=== PATIENT | female | born 1980 | race Two or more races ===

== ENCOUNTER 2018-10-28 22:49 | Emergency (ER) | payer OTHER ==
[~2018-10-28] VITALS: Ht 162.6 cm; Wt 77.1 kg
[2018-10-28 23:19] VITALS: BP 134/84
[2018-10-28] MEDS ORDERED: TDAP [DIPH/PERTUSSIS/TET] 0.5 ML VIAL IM ONE (23:58)
[2018-10-29] MEDS ORDERED: TDAP [DIPH/PERTUSSIS/TET] 0.5 ML VIAL IM ONE
== END 2018-10-29 01:17 | disposition home or self-care (01) ==
LOC: ER 22:54
DX: S60.450A Superficial foreign body of right index finger, initial encounter (principal); Z90.89 Acquired absence of other organs; W25.XXXA Contact with sharp glass, initial encounter; Y93.89 Activity, other specified; Y92.89 Other specified places as the place of occurrence of the external cause; Y99.8 Other external cause status
CPT/HCPCS: 73140; 90471; 90715; 99283; A4606; Z7610

== ENCOUNTER 2019-09-20 17:15 | Emergency (ER) | payer MEDICAID, OTHER ==
[~2019-09-20] VITALS: Ht 162.6 cm; Wt 81.6 kg
--- NOTE | 2019-09-20 17:20 | NUR ---
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 Patient a/ox4, breathing even and unlabored, no sob noted, no distress noted, patient still noted to have vaginal bleeding with blod clots. Attached to the shoe parts molder.
[2019-09-20] MEDS ORDERED: IV NS 0.9% 1,000 ML BAG IV ONE (17:30)
--- NOTE | 2019-09-20 17:40 | NUR ---
Dr. Mcclellan preferred a straight catheter to separate urine from vaginal bleeding. Informed the patient but patient refused the straight catheter due to previous uti from a catheter. Explained risks and benefits, still refused. Dr. Mcclellan aware, ok to not collect urine.
[2019-09-20 18:01] LABS: BASOPHILS % (AUTO) 0.2 % (0.0-2.0); EOSINOPHILS % (AUTO) 0.6 % (0.0-6.0); HEMATOCRIT 33 % (33-45); HEMOGLOBIN 11.3 g/dL (11.5-14.8); LYMPHOCYTES # (AUTO) 1.5 /CMM (0.8-4.8); LYMPHOCYTES % (AUTO) 29.2 % (20.0-44.0); MEAN CORPUSCULAR HGB CONC 34 g/dl (31.0-36.0); MEAN CORPUSCULAR VOLUME 90 fL (82-100); MONOCYTES # (AUTO) 0.5 /CMM (0.1-1.30); MONOCYTES % (AUTO) 9.4 % (2.0-12.0); NEUTROPHILS # (AUTO) 3.2 /CMM (1.8-8.9); NEUTROPHILS % (AUTO) 60.6 % (43.0-81.0); PLATELET COUNT (AUTO) 175 /CMM (150-450); RED BLOOD CELL COUNT(AUTO) 3.71 MIL/uL (4.0-5.2); WHITE BLOOD COUNT (AUTO) 5.2 K/uL (4.3-11.0)
--- NOTE | 2019-09-20 19:00 | NUR ---
IV removed. Catheter intact and site benign. Pressure and 4x4 applied to site. No bleeding noted.Patient discharged to home in stable condition. Written and verbal after care instructions given. Patient verbalizes understanding of instruction.
[2019-09-20 19:01] VITALS: BP 102/70
== END 2019-09-20 19:01 | disposition home or self-care (01) ==
LOC: ER 17:17
DX: O20.0 Threatened abortion (principal); Z90.89 Acquired absence of other organs; Z3A.15 15 weeks gestation of pregnancy
CPT/HCPCS: 36415; 76856; 84702; 85025; 86850; 99284; J7030

== ENCOUNTER 2021-08-21 14:18 | Emergency (ER) | payer OTHER ==
[~2021-08-21] VITALS: Ht 162.6 cm; Wt 78.5 kg
--- NOTE | 2021-08-21 15:45 | NUR ---
COVID SWAB DONE AND SENT TO THE LAB
--- NOTE | 2021-08-21 16:00 | NUR ---
The patient bibs for c/o sore throat x 3 days. Rates pain 3/10. In room air and denies SOB. Respiration regular and unlabored. Will continue to monitor the patient.
[2021-08-21 16:06] VITALS: BP 123/62
--- NOTE | 2021-08-21 16:06 | NUR ---
Patient discharged to home in stable condition. Written and verbal after care instructions given. Patient verbalizes understanding of instruction.
--- NOTE | 2021-08-21 16:07 | NUR ---
UNABLE TO DEPART THE PATIENT FROM [facility]
--- NOTE | 2021-08-25 13:14 | NUR ---
PATIENT CALLED TO FIND OUT RESULT FOR COVID, RELAYED NEGATIVE
== END 2021-08-21 18:00 | disposition home or self-care (01) ==
LOC: ER 17:17
DX: J02.9 Acute pharyngitis, unspecified (principal); Z20.822 Contact with and (suspected) exposure to COVID-19
CPT/HCPCS: 87426; 99283; C9803

== ENCOUNTER 2022-08-18 22:28 | Inpatient (IN) | payer OTHER ==
[~2022-08-18] VITALS: Ht 162.6 cm; Wt 73.1 kg
[~2022-08-18 22:28] MED LIST changes: -CEFTRIAXONE 1GM BAG (ER ONLY) 1 GM/50 ML PIGGYBACK IV ONE; -CEFTRIAXONE 1GM BAG (ER ONLY) 50 ML IV ONE; -KETOROLAC TROMETHAMINE 15 MG/ML VIAL ONE; -KETOROLAC TROMETHAMINE INJ 30 MG/ML VIAL IV ONE; -NITR100C6 PO
--- NOTE | 2022-08-18 22:38 | NUR ---
KARMEN 839 FROM HOME FOR C/O FEVER. WAS SEEN AT [facility] ER EARLIER FOR RENAL STONE AND UTI A/OX4. TOLERATING R/A WELL WITH NO RESP DISTRESS. AMBULATORY WITH STEADY GAIT. SAFETY MEASURES IN PLACE. SITTER AT PT'S BEDSIDE
--- NOTE | 2022-08-18 23:20 | NUR ---
SOFTWARE INTEGRATION DEVELOPER AT PT'S BEDSIDE
[2022-08-18] MEDS ORDERED: IV NS 0.9% 1,000 ML BAG IV ONE (23:30)
[2022-08-18] MEDS ORDERED: KETOROLAC TROMETHAMINE INJ 30 MG/ML VIAL IV ONE (23:30)
--- NOTE | 2022-08-18 23:41 | NUR ---
URINE COLLECTED AND SENT TO LAB
--- NOTE | 2022-08-18 23:41 | NUR ---
20g IV ESTABLISHED AT [facility] BLOOD DRAWN AND SENT TO LAB
--- NOTE | 2022-08-18 23:42 | NUR ---
JENNIFER SENT TO LAB
[2022-08-19 00:21] LABS: BASOPHILS % (AUTO) 0.3 % (0.0-2.0); EOSINOPHILS % (AUTO) 0.1 % (0.0-6.0); HEMATOCRIT 31 % (33-45); HEMOGLOBIN 10.4 g/dL (11.5-14.8); LYMPHOCYTES % (AUTO) 13.8 % (20.0-44.0); MEAN CORPUSCULAR HGB CONC 33 g/dl (31.0-36.0); MEAN CORPUSCULAR VOLUME 83 fL (82-100); MONOCYTES % (AUTO) 14.5 % (2.0-12.0); NEUTROPHILS % (AUTO) 71.3 % (43.0-81.0); PLATELET COUNT (AUTO) 183 K/uL (150-450)
[2022-08-19 00:46] LABS: CALCIUM, SERUM 9.2 mg/dL (8.5-10.1); CARBON DIOXIDE 24 mmol/L (21-32); CHLORIDE 100 mmol/L (98-107); CREATININE 0.8 mg/dL (0.6-1.3); GLUCOSE 120 mg/dL (74-106); POTASSIUM 3.6 mmol/L (3.5-5.1); SODIUM SERUM 135 mmol/L (136-145); UREA NITROGEN, BLOOD 10 mg/dL (7-18)
[2022-08-19 00:50] LABS: ALANINE AMINOTRANSFERASE 30 U/L (12-78); ALBUMIN 3.7 g/dL (3.4-5.0); ALKALINE PHOSPHATASE 59 U/L (46-116); ASPARTATE AMINOTRANSFERASE 16 U/L (15-37); BILIRUBIN,DIRECT 0.2 mg/dL (0.0-0.2); BILIRUBIN,TOTAL 0.9 mg/dL (0.2-1.0); TOTAL PROTEIN, SERUM 8.2 g/dL (6.4-8.2)
--- NOTE | 2022-08-19 02:17 | NUR ---
COLOR MIXER AT PT'S BEDSIDE
[2022-08-19] MEDS ORDERED: MAGNESIUM HYDROXIDE 30 ML UDC PO PRN (03:00)
[2022-08-19] MEDS ORDERED: ONDANSETRON HCL/PF 4 MG/2 ML VIAL IVP PRN (03:00)
[2022-08-19] MEDS ORDERED: MAG HYDROX/AL HYDROX/SIMETH 30 ML UDC PO PRN (03:00)
[2022-08-19] MEDS ORDERED: MORPHINE SULFATE INJ 2 MG/ML DISP.SYRIN IV PRN (03:00)
[2022-08-19] MEDS ORDERED: HYDROCODONE/APAP 5/325MG TABLET PO PRN (03:00)
[2022-08-19] MEDS ORDERED: Z GUARD REMEDY 4 OZ OINT TP PRN (03:00)
[2022-08-19] MEDS ORDERED: TEMAZEPAM 15 MG CAPSULE PO PRN (03:00)
--- NOTE | 2022-08-19 03:32 | NUR ---
REPORT GIVEN TO FABI
--- NOTE | 2022-08-19 03:45 | NUR ---
PT TRANSPORTED TO 311 VIA WHEELCHAIR IN STABLE CONDITION
--- NOTE | 2022-08-19 03:46 | NUR ---
MS DICE PERSON NOTE PT TRANSPORTED VIA WHEELCHAIR TO UNIT AT THIS TIME. PT ADMITTED TO MS UNIT FROM ER UNDER CORROSION CONTROL FITTER VIRGIL FOR ADMITTING DX OF UTI. A/O X4 AND ABLE TO MAKE NEEDS KNOWN. PT IS AMBULATORY WITH STEADY GAIT. STABLE ON ROOM AIR, TOLERATING WELL. NO SOB OR S/S OF RESPIRATORY DISTRESS. BREATHING EVEN AND UNLABORED. DENIES PAIN OR DISCOMFORT AT THIS TIME. SKIN IS INTACT. IV ACCESS RAC 20G, INTACT AND PATENT. PT ORIENTED TO UNIT, ROOM, AND UNIT. PT BELONGINGS ACCOUNTED FOR AND BELONGINGS LIST SIGNED. SAFETY PRECAUTIONS IN PLACE. BED IN LOWEST LOCKED POSITION, HOB ELEVATED, SIDE RAILS UP X2, AND CALL LIGHT AND TABLE WITHIN REACH. ALL NEEDS MET AT THIS TIME.
[2022-08-19] MEDS ORDERED: CEFTRIAXONE 1 G VIAL ONE (03:53)
[2022-08-19] MEDS: CEFTRIAXONE 1 G in IV D5W 50 ML IV SCH (04:06)
[2022-08-19] MEDS: IV NS 0.9% 1,000 ML IV PRN ×2 (04:06→17:59)
[2022-08-19 04:37] VITALS: BP 93/54
--- NOTE | 2022-08-19 06:51 | NUR ---
MS RN CLOSING NOTE PT AWAKE IN BED. A/O X4 AND ABLE TO MAKE NEEDS KNOWN. STABLE ON ROOM AIR, TOLERATING WELL. NO SOB OR S/S OF RESPIRATORY DISTRESS. BREATHING EVEN AND UNLABORED. DENIES PAIN OR DISCOMFORT AT THIS TIME. IV ACCESS RAC 20G, INTACT AND PATENT, RUNNING NS @ 100 ML/HR. ALL DUE MEDS GIVEN ORDERED. SAFETY PRECAUTIONS IN PLACE AT ALL TIMES. BED IN LOWEST LOCKED POSITION, HOB ELEVATED, SIDE RAILS UP X2, AND CALL LIGHT AND TABLE WITHIN REACH. ALL NEEDS MET AT THIS TIME AND WILL ENDORSE TO ONCOMING NURSE FOR DIAMANTE.
--- NOTE | 2022-08-19 07:00 | NUR ---
MS RN OPENING NOTES: RECEIVED PT IN BED, AWAKE ALERT AND ORIENTED X 4. ABLE TO VERBALIZED NEEDS. DENIES PAIN AT THIS TIME. NO SOB OR CARDIAC DISTRESS NOTED. IV ACCESS ON RAC G 20 PATENT, INTACT NS 1L @100ML/HR AND INFUSING WELL. MAINTAINED SAFETY MEASURES: BED LOCKED AND IN LOWEST POSITION, SIDE RAILS UP X 2 CALL LIGHT IN EASY REACH FOR HELP. WILL MONITOR ACCORDINGLY.
[2022-08-19 08:00] VITALS: BP 112/76
[2022-08-19] MEDS: PANTOPRAZOLE 40 MG TABLET.DR PO SCH (08:06)
[2022-08-19] MEDS: ACETAMINOPHEN 325 MG TABLET PO PRN ×2 (09:45→17:59)
[2022-08-19 16:00] VITALS: BP 100/60
--- NOTE | 2022-08-19 18:49 | NUR ---
RN MS CLOSING NOTES: PATIENT IN BED, AWAKE. ALERT AND ORIENTED X 4 AND ABLE TO VERBALIZED NEEDS. NO SOB OR CARDIAC DISTRESS NOTED. ON PAIN MANAGEMENT ORDERED. IV ACCESS ON RAC GAUGE 20, PATENT, INTACT AND INFUSING NS 1L @100ML/HR. SAFETY MEASURES MAINTAINED: BED LOCKED AND IN LOWEST POSITION, SIDE RAILS UP X 2. CALL LIGHT AND BED SIDE TABLE IN EASY REACH. ENDORSED TO NOC SHIFT FOR DIAMANTE.
[2022-08-19 18:57] VITALS: BP 115/64
--- NOTE | 2022-08-19 19:00 | NUR ---
MS RN NOTES PATIENT STATED THAT SHE FEELS HOT. VITAL SIGNS TAKEN DOCUMENTED. REMOVE 4 BLANKETS FROM HER, AND PROVIDED 2 ICE PACKS FOR HER. WILL ENDORSE THE BELL CAPTAIN RN TO CONTINUE MONITORING PATIENT'S CONDITION.
--- NOTE | 2022-08-19 19:30 | NUR ---
MS RN OPENING NOTE PT AWAKE IN BED. A/O X4 AND ABLE TO MAKE NEEDS KNOWN. STABLE ON ROOM AIR, TOLERATING WELL. NO SOB OR S/S OF RESPIRATORY DISTRESS. BREATHING EVEN AND UNLABORED. DENIES PAIN OR DISCOMFORT AT THIS TIME. IV ACCESS RAC 20G, INTACT AND PATENT, RUNNING NS @ 100 ML/HR. SAFETY PRECAUTIONS IN PLACE. BED IN LOWEST LOCKED POSITION, HOB ELEVATED, SIDE RAILS UP X2, AND CALL LIGHT AND TABLE WITHIN REACH. ALL NEEDS MET AT THIS TIME.
[2022-08-19 20:35] VITALS: BP 97/71
[2022-08-20] MEDS: CEFTRIAXONE 1 G in IV D5W 50 ML IV SCH (04:23)
[2022-08-20] MEDS: ACETAMINOPHEN 325 MG TABLET PO PRN ×2 (04:42→14:02)
--- NOTE | 2022-08-20 04:42 | NUR ---
RN NOTE PT COMPLAINED OF HEADACHE 12/31. ADMINISTERED TYLENOL 650 MG FOR MILD PAIN ORDERED. MADE COMFORTABLE IN BED. ALL NEEDS MET AT THIS TIME.
[2022-08-20 06:59] LABS: BASOPHILS % (AUTO) 0.3 % (0.0-2.0); EOSINOPHILS % (AUTO) 0.9 % (0.0-6.0); HEMATOCRIT 31 % (33-45); HEMOGLOBIN 10.1 g/dL (11.5-14.8); LYMPHOCYTES # (AUTO) 1.8 K/uL (0.8-4.8); LYMPHOCYTES % (AUTO) 27.8 % (20.0-44.0); MEAN CORPUSCULAR HGB CONC 33 g/dl (31.0-36.0); MEAN CORPUSCULAR VOLUME 83 fL (82-100); MONOCYTES # (AUTO) 0.9 K/uL (0.1-1.30); MONOCYTES % (AUTO) 13.7 % (2.0-12.0); NEUTROPHILS # (AUTO) 3.6 K/uL (1.8-8.9); NEUTROPHILS % (AUTO) 57.3 % (43.0-81.0); PLATELET COUNT (AUTO) 182 K/uL (150-450); RED BLOOD CELL COUNT(AUTO) 3.71 MIL/uL (4.0-5.2); WHITE BLOOD COUNT (AUTO) 6.4 K/uL (4.3-11.0)
[2022-08-20 07:00] VITALS: BP 101/70
--- NOTE | 2022-08-20 07:09 | NUR ---
MS RN OPENING NOTES RECEIVED PATIENT IN BED RESTING, A/Ox4. ON ROOM AIR NO S/S OF PAIN OR DISCOMFORT. IV ACCESS R AC#20G NS RUNNING 100 ML/HR. INTACT AND PATIENT NO S/S OF INFILTRATION. PATIENT IS AMBULATORY, HAS BATHROOM PRIVILEGES. SKIN INTACT. SAFETY MEASURES IN PLACE: BED LOCKED AND IN LOWEST POSITION, SIDE RAILS UP x2, CALL LIGHT WITHIN REACH, HOB ELEVATED. WILL CONTINUE TO MONITOR.
[2022-08-20 07:30] LABS: CALCIUM, SERUM 8.3 mg/dL (8.5-10.1); CREATININE 0.7 mg/dL (0.6-1.3); MAGNESIUM 1.9 mg/dL (1.8-2.4); PHOSPHORUS 3.5 mg/dL (2.5-4.9); POTASSIUM 3.6 mmol/L (3.5-5.1)
[2022-08-20] MEDS: PANTOPRAZOLE 40 MG TABLET.DR PO SCH (08:07)
[2022-08-20] MEDS: IV NS 0.9% 1,000 ML IV PRN (11:14)
--- NOTE | 2022-08-20 14:43 | NUR ---
RN NOTES PATIENT REQUESTED PRN TYLENOL FOR HEADACHE. WILL CONTINUE TO MONITOR, NO COMPLAINT OR EVIDENCE OF FEVER NOTED.
[2022-08-20 16:00] VITALS: BP 117/70
[2022-08-20] MEDS ORDERED: SUMATRIPTAN SUCCINATE 25 MG TABLET PO ONE (18:00)
--- NOTE | 2022-08-20 18:43 | NUR ---
MS RN CLOSING NOTES RECEIVED PATIENT IN BED RESTING, A/Ox4. ON ROOM AIR NO S/S OF PAIN OR DISCOMFORT. IV ACCESS R AC#20G NS RUNNING 100 ML/HR. INTACT AND PATIENT NO S/S OF INFILTRATION. PATIENT IS AMBULATORY, HAS BATHROOM PRIVILEGES. SKIN INTACT. ALL PRESCRIBED MEDICATION ADMINISTERED. SAFETY MEASURES MAINTAINED: BED LOCKED AND IN LOWEST POSITION, SIDE RAILS UP x2, CALL LIGHT WITHIN REACH, HOB ELEVATED. WILL ENDORSE TO NEXT SHIFT ANY DIAMANTE.
[2022-08-20 20:00] VITALS: BP 111/67
--- NOTE | 2022-08-20 20:38 | NUR ---
MS RN OPENING NOTES PATIENT IN BED RESTING, A/Ox4. ON ROOM AIR NO S/S OF PAIN OR DISCOMFORT. IV ACCESS R AC#20G NS RUNNING 100 ML/HR. INTACT AND PATIENT NO S/S OF INFILTRATION. PATIENT IS AMBULATORY, HAS BATHROOM PRIVILEGES. SKIN INTACT. SAFETY MEASURES MAINTAINED: BED LOCKED AND IN LOWEST POSITION, SIDE RAILS UP x2, CALL LIGHT WITHIN REACH, HOB ELEVATED.
[2022-08-21] MEDS: CEFTRIAXONE 1 G in IV D5W 50 ML IV SCH (04:57)
[2022-08-21 06:32] LABS: BASOPHILS % (AUTO) 0.4 % (0.0-2.0); EOSINOPHILS % (AUTO) 1.5 % (0.0-6.0); HEMATOCRIT 33 % (33-45); HEMOGLOBIN 10.7 g/dL (11.5-14.8); LYMPHOCYTES # (AUTO) 1.7 K/uL (0.8-4.8); LYMPHOCYTES % (AUTO) 28.4 % (20.0-44.0); MEAN CORPUSCULAR HGB CONC 33 g/dl (31.0-36.0); MEAN CORPUSCULAR VOLUME 83 fL (82-100); MONOCYTES # (AUTO) 0.7 K/uL (0.1-1.30); MONOCYTES % (AUTO) 11.4 % (2.0-12.0); NEUTROPHILS # (AUTO) 3.5 K/uL (1.8-8.9); NEUTROPHILS % (AUTO) 58.3 % (43.0-81.0); PLATELET COUNT (AUTO) 203 K/uL (150-450); RED BLOOD CELL COUNT(AUTO) 3.95 MIL/uL (4.0-5.2); WHITE BLOOD COUNT (AUTO) 6.1 K/uL (4.3-11.0)
--- NOTE | 2022-08-21 07:12 | NUR ---
MS RN CLOSING NOTES PATIENT IN BED RESTING, A/Ox4. ON ROOM AIR NO S/S OF PAIN OR DISCOMFORT. IV ACCESS R AC#20G NS RUNNING 100 ML/HR. INTACT AND PATIENT NO S/S OF INFILTRATION. PATIENT IS AMBULATORY, HAS BATHROOM PRIVILEGES. SKIN INTACT. SAFETY MEASURES MAINTAINED: BED LOCKED AND IN LOWEST POSITION, SIDE RAILS UP x2, CALL LIGHT WITHIN REACH, HOB ELEVATED. WILL ENDORSE CARE TO DAY SHIFT NURSE.
--- NOTE | 2022-08-21 07:31 | NUR ---
MS RN OPENING NOTES RECEIVED PATIENT IN BED RESTING, A/Ox4. ABLE TO MAKE NEEDS KNOWN. ON ROOM AIR. NO PAIN OR DISCOMFORT NOTED. IV ACCESS R AC#20G NS RUNNING 100 ML/HR. INTACT AND PATIENT NO S/S OF INFILTRATION. PATIENT IS AMBULATORY. BRP. SKIN INTACT. ALL SAFETY MEASURES IN PLACE: BED LOCKED AND IN LOWEST POSITION, SIDE RAILS UP x2, CALL LIGHT WITHIN REACH, HOB ELEVATED. WILL CONTINUE TO MONITOR.
[2022-08-21] MEDS: PANTOPRAZOLE 40 MG TABLET.DR PO SCH (07:34)
[2022-08-21] MEDS: ACETAMINOPHEN 325 MG TABLET PO PRN (07:52)
[2022-08-21 08:00] VITALS: BP 100/70
[2022-08-21] MEDS ORDERED: NITR100C6 PO (13:00)
--- NOTE | 2022-08-21 14:00 | NUR ---
RN NOTES DISCHARGE PATIENT IN STABLE CONDITION WITH STABLE VITAL SIGNS. NO PAIN NOTED, NO SOB NOTED. NO DISTRESS NOTED. ALL THE DISCHARGE INSTRUCTIONS GIVEN TO THE PATIENT. PATIENT UNDERSTANDING WELL AND VERBALIZING IT. IV SITE REMOVED COVERED WITH DRY DRESSING NO BLEEDING NOTED. ID BAND REMOVED. WALK WITH THE PATIENT TO THE LOBBY. PICKED UP THE PATIENT. PATIENT LEFT HOSPITAL IN STABLE CONDITION AND STABLE VITAL SIGNS AT 1400. MD AND CHARGE NURSE AWARE OF THE DISCHARGE.
== END 2022-08-21 13:45 | disposition home or self-care (01) | DRG 720 ==
LOC: ER 22:39 → MED 08-19 03:08
PROVIDERS: ADMIT Nurse Practitioner Acute Care; ATTEND Nurse Practitioner Acute Care
DX: A41.9 Sepsis, unspecified organism (principal); K76.0 Fatty (change of) liver, not elsewhere classified; N13.6 Pyonephrosis; B96.89 Other specified bacterial agents as the cause of diseases classified elsewhere; N39.0 Urinary tract infection, site not specified; Z20.822 Contact with and (suspected) exposure to COVID-19; Z87.442 Personal history of urinary calculi; Z90.49 Acquired absence of other specified parts of digestive tract; Z98.890 Other specified postprocedural states; Z96.0 Presence of urogenital implants; R19.09 Other intra-abdominal and pelvic swelling, mass and lump
CPT/HCPCS: 36415; 71045-TC; 80048-TC; 80076-TC; 83605-TC; 83735-TC; 84100-TC; 84702-TC; 85025-TC; 85730-TC; 87040-TC; 87081-TC; C9803; G0378; J0696; J1885; J2270; J7030; J7040; J7060

== ENCOUNTER → 2022-08-18 | Emergency (ER) | payer OTHER ==
[~2022-08-18] VITALS: Ht 162.6 cm; Wt 74.8 kg
[~2022-08-18] MED LIST: CEFTRIAXONE 1GM BAG (ER ONLY) 1 GM/50 ML PIGGYBACK IV ONE; CEFTRIAXONE 1GM BAG (ER ONLY) 50 ML IV ONE; IBUP-1955 PO; KETOROLAC TROMETHAMINE 15 MG/ML VIAL ONE; KETOROLAC TROMETHAMINE INJ 30 MG/ML VIAL IV ONE; NITR100C6 PO; SULF1TAB48 PO
--- NOTE | 2022-08-18 11:00 | NUR ---
BIBRA 838 FROM HOME, C/O FLANK AND ABDOMINAL PAIN X 1-1/2 HR, H/O KIDNEY STONE. TO ER BED 1.
[2022-08-18 11:37] LABS: BASOPHILS % (AUTO) 0.3 % (0.0-2.0); EOSINOPHILS % (AUTO) 0.3 % (0.0-6.0); HEMATOCRIT 37 % (33-45); HEMOGLOBIN 12.3 g/dL (11.5-14.8); LYMPHOCYTES # (AUTO) 1.2 K/uL (0.8-4.8); LYMPHOCYTES % (AUTO) 16.7 % (20.0-44.0); MEAN CORPUSCULAR HGB CONC 33 g/dl (31.0-36.0); MEAN CORPUSCULAR VOLUME 83 fL (82-100); MONOCYTES # (AUTO) 0.6 K/uL (0.1-1.30); MONOCYTES % (AUTO) 8.8 % (2.0-12.0); NEUTROPHILS # (AUTO) 5.4 K/uL (1.8-8.9); NEUTROPHILS % (AUTO) 73.9 % (43.0-81.0); PLATELET COUNT (AUTO) 229 K/uL (150-450); RED BLOOD CELL COUNT(AUTO) 4.48 MIL/uL (4.0-5.2); WHITE BLOOD COUNT (AUTO) 7.2 K/uL (4.3-11.0)
[2022-08-18 11:45] LABS: BILIRUBIN,URINE NEGATIVE (NEGATIVE); COLOR,URINE YELLOW (YELLOW); LEUKOCYTE ESTERASE ,URINE MODERATE (NEGATIVE); NITRITE, URINE POSITIVE (NEGATIVE); PH,URINE 6.5 (5.0-8.0); PROTEIN,URINE 100 mg/dl (NEGATIVE); UGLUCOSE NEGATIVE (NEGATIVE); UROBILINOGEN,URINE 0.2 EU/dL (0.2)
[2022-08-18 11:57] LABS: CALCIUM, SERUM 9.1 mg/dL (8.5-10.1); CREATININE 0.8 mg/dL (0.6-1.3); POTASSIUM 3.7 mmol/L (3.5-5.1)
[2022-08-18 12:02] LABS: ALBUMIN 3.7 g/dL (3.4-5.0); BILIRUBIN,TOTAL 0.8 mg/dL (0.2-1.0); TOTAL PROTEIN, SERUM 8.1 g/dL (6.4-8.2)
[2022-08-18 12:16] LABS: BACTERIA,URINE Rare /HPF (None Seen); SQUAMOUS EPITHELIAL CELL,UR Few /HPF (None Seen)
--- NOTE | 2022-08-18 12:21 | NUR ---
PT TAKEN TO RADIOLOGY FOR CT
--- NOTE | 2022-08-18 12:35 | NUR ---
PT RETURNED FROM RADIOLOGY
[2022-08-18 13:40] VITALS: BP 133/70
--- NOTE | 2022-08-18 14:02 | NUR ---
DR TELLO AT BEDSIDE TALKING TO PT
--- NOTE | 2022-08-18 14:15 | NUR ---
PATIENT OUT-PATIENT UROLOGY, DR. SORAYA DRUMMOND.
--- NOTE | 2022-08-18 14:46 | NUR ---
IV removed. Catheter intact and site benign. Pressure and 4x4 applied to site. No bleeding noted.
== END | disposition home or self-care (01) ==
LOC: ER 10:52
DX: N20.0 Calculus of kidney (principal); N39.0 Urinary tract infection, site not specified; R10.31 Right lower quadrant pain; R10.32 Left lower quadrant pain; R10.2 Pelvic and perineal pain; Z87.442 Personal history of urinary calculi; Z90.89 Acquired absence of other organs; Z79.899 Other long term (current) drug therapy
CPT/HCPCS: 99284; 74176; 96365; 96375; 96376; 85025; 84703; 81001; 36415; 80053; J0696; J1885 ×2